=== PATIENT | female | born 1960 | race Caucasian/White ===

== ENCOUNTER 2022-08-16 11:23 | Emergency (ER) | payer BC ==
[~2022-08-16] VITALS: Ht 165.1 cm; Wt 63.0 kg
[2022-08-16 13:45] VITALS: BP 111/73
== END 2022-08-16 13:58 | disposition home or self-care (01) | DRG 605 ==
LOC: ED 11:23
PROC: 0HQ0XZZ Repair Scalp Skin, External Approach (ICD-10-PCS; principal; 2022-08-16)
DX: S01.01XA Laceration without foreign body of scalp, initial encounter (principal); W01.198A Fall on same level from slipping, tripping and stumbling with subsequent striking against other object, initial encounter; S00.93XA Contusion of unspecified part of head, initial encounter; G20 Parkinson's disease

== ENCOUNTER 2022-09-18 08:48 | Emergency (ER) | payer BC ==
[~2022-09-18] VITALS: Ht 165.1 cm; Wt 63.5 kg
[2022-09-18] MEDS ORDERED: SINEMET 25/1001 TAB PO (09:01)
[2022-09-18 19:21] VITALS: BP 130/73
== END 2022-09-18 19:15 | disposition short-term general hospital (02) | DRG 552 ==
LOC: ED 08:48
DX: S32.019A Unspecified fracture of first lumbar vertebra, initial encounter for closed fracture (principal); W18.30XA Fall on same level, unspecified, initial encounter; G20 Parkinson's disease